=== PATIENT | female | born 1985 | race Caucasian/White ===

== ENCOUNTER 2022-01-21 20:45 | Inpatient (IN) | payer OTHER, SELFPAY ==
[2022-01-21 21:03] VITALS: BP 123/81; PULSE 77
[2022-01-21 21:10] VITALS: BMI 30.1
[2022-01-21 21:37] VITALS: RESP 16
[2022-01-21] MEDS: miSOPROStol 100 mcg tablet 25 MCG VAGINAL (22:00)
[2022-01-21 23:09] LABS: Basophils % 0.3 %; Eosinophils # 0.1 10^3/uL (0.0-0.8); Eosinophils % 1.6 %; Hematocrit 38.5 % (37.0-47.0); Hemoglobin 13.4 g/dL (11.5-15.3); Lymphocytes # 1.9 10^3/uL (0.8-4.8); Lymphocytes % 24.1 %; Mean Corpuscular HGB Conc 34.8 g/dL (30.0-36.0); Mean Corpuscular Hemoglobin 31.8 pg (28.0-34.0); Mean Corpuscular Volume 91.2 fl (81-99); Mean Platelet Volume 11.1 fL (7.4-10.4); Monocytes # 0.6 10^3/uL (0.2-0.9); Monocytes % 7.6 %; Neutrophils # 5.23 10^3/uL (1.8-7.7); Neutrophils % 65.9 %; Nucleated Red Blood Cells % 0 %; Platelet Count 221 10^3/cmm (130-400); Red Blood Count 4.22 10^6/uL (4.1-5.3); Red Cell Distribution Width 12.9 % (12.1-15.1); White Blood Count 7.9 10^3/uL (4.0-10.0)
[2022-01-21 23:53] VITALS: BP 106/56; PULSE 76
[2022-01-22] VITALS (97 sets, daily range): BP systolic 85–197; BP diastolic 47–116; PULSE 71–125; RESP 15–18; TEMP 36.2–37.4; O2SAT 93–100
[2022-01-22] MEDS: miSOPROStol 100 mcg tablet 25 MCG VAGINAL ×3 (02:00→10:44)
--- NOTE | 2022-01-22 06:54 | PM.OPHPUD ---
Labor & Delivery H&P Update Date of Procedure: January 22, 2022 Date H&P Performed: 01/21/22 Admission Diagnosis: 37-year-old 1 at 39 weeks and 5 days presenting for induction due to advanced maternal age as well as probable macrosomia. Planned procedure: Induction with presumed vaginal delivery Other information: The patient has had an unremarkable . She has had consistent care. Yesterday we discussed the pros and cons of continuing versus induction. Her cervix is unfavorable, and she knows that the chance of having a is greater as result of that. We also discussed the risks associated with late and advanced maternal age. As result we elected to proceed with an induction her labs are as follows. Her blood type is O+. Her antibody screen is negative. She failed her initial glucose screen, but passed her 3-hour. She is rubella immune. And the remainder of her infectious disease profile is within normal limits.
[2022-01-22] MEDS: fentaNYL 50 mcg/mL INJ 2mL IVP ×3 (10:12→12:34)
[2022-01-22] MEDS: dextrose 5%-lactated ringers 1,000 ML 125 ML IV (10:12)
--- NOTE | 2022-01-22 13:27 | P.ANESASSM_ITS ---
Pre-Anesthetic Assessment Height/Weight: Height 1.73 m Weight 89.811 kg Temp Pulse Resp BP O2 Del Method 97.1 F L 88 18 124/80 01/22/22 10:17 01/22/22 11:37 01/22/22 12:34 01/22/22 11:37 01/21/22 21:10 Preop Diagnosis: labor Pain epidural Familial anesthetic complications: none Was Beta Raul taken within 24 hours: N/A Was Clonidine taken within 24 hours: N/A Social No alcohol and No tobacco Exam alert, oriented x 3, clear to auscultation bilaterally and regular rate & rhythm Airway Submandibular: within normal limits Cervical ROM: within normal limits Mallampati: Class II Dentition: full History/ROS Other Pulmonary None reported CV/HEM None reported None reported Hepatic None reported GI Gastroesophageal Reflux Disease Metabolic None reported Musc/skel None reported Neuropsych None reported Anesthetic Plan ASA status: 2 Anesthesia: Regional (specify below) Risk of > 500 ml blood loss (7ml/kg in children): No Medications/Allergies Allergies Allergy/AdvReac Type Severity Reaction Status Date / Time No Known Allergies Allergy Unverified 09/25/21 08:14 Current Medications Generic Name Dose Route Start Last Admin Trade Name Freq PRN Reason Stop Dose Admin Fentanyl 25 - 100 mcg 01/21/22 21:37 01/22/22 12:34 Fentanyl 50 Mcg/Ml Inj 2ml IVP 75 mcg Q1H PRN Administration SEVERE PAIN Dextrose/Lactated Ringer's 1,000 mls @ 125 mls/hr 01/21/22 21:37 01/22/22 10:12 Dextrose 5%-Lactated Ringers IV 125 mls/hr .Q8H PRN Administration per label comments [facility] Anesthesia Female Reproductive History : 1 Data Anesthesia 01/21/22 21:30 Short CBC 01/21/22 Range/Units 21:30 WBC 7.9 (4.0-10.0) 10^3/uL Hgb 13.4 (11.5-15.3) g/dL Hct 38.5 (37.0-47.0) % MCV 91.2 (81-99) fl Plt Count 221 (130-400) 10^3/cmm Neut % (Auto) 65.9 % Neut # (Auto) 5.23 (1.8-7.7) 10^3/uL Cardiac Studies: No Data to Display
--- NOTE | 2022-01-22 13:53 | P.ANES_ITS ---
Anesthesia Procedures Procedure/Date: 01/22/22 epidural Procedure Narrative: epidural complete by SRNA, bolus given, epidural pump initiated with VICE PRESIDENT FOR PHILANTHROPY education given, vitals taken during procedure and satisfactory throughout, patient admits to decrease pain, report of procedure to OB RN Epidural: Time Out Performed: Yes Consents Signed: Procedure Consent Con sent: requested by attending/covering physician, from patient, risks and benefits reviewed and patient agrees to proceed Lumbar Level: L3-L4 Epidu ral position: sitting Epidural procedure: sterile prep of area, 1% lidocaine to numb the area (3 mL), 18 g needle, negative for paresthesia passed, neg for paresthesia, test dose given, 1.5% xylocaine 1:200k epi (5 mL), 0.2% Ropivacaine bolus ml (5 mL), placed PCEA, no systemic response, sterile dressing applied, L.U.D. no apparent complications and 0.2% Ropiavacaine @ mls/hr (13 mL/hr)
[2022-01-22] MEDS: ondansetron 2 mg/ML SDV 2 mL 4 MG IVP (14:00)
[2022-01-22] MEDS: hyDROXYzine 25 mg Capsule 50 MG PO (16:51)
--- NOTE | 2022-01-22 20:36 | P.PCNOB_ITS ---
Delivery Note: Date of delivery: January 22, 2022 Pre-delivery diagnoses: 37-year-old 1 at 39 weeks and 5 days presenting for induction due to advanced maternal age. Post-delivery diagnoses: Status post vacuum-assisted vaginal delivery Procedure: Vacuum-assisted vaginal delivery Delivering Physician: Vernon Barton Estimated blood loss (mL): 200 Pre-Delivery Course: And wasThe patient presented to the hospital for induction based on Cytotec 25 mcg x 4. An epidural was placed. An amniotomy was performed. She then progressed to complete without difficulty. Her baby was demonstrating some decelerations and tachycardia and was repositioned. Despite his decelerations and tachycardia he continued to show good variability. As a result, we elected to have the patient push while having anesthesia and pediatrics available in case we need to proceed with a section. The patient had several decelerations that were prolonged in a row, as result I elected to apply a Kiwi soft cup vacuum. The pressure was applied with each contraction the released between contractions. There were no pop offs. With the assistance of the vacuum the baby was able to progress to the point of . Delivery: DELIVERY: She delivered a male with a weight of 7 pounds 0 ounces with Apgars of 2, 7, 7. The baby was delivered from the CIPRIANO position. The baby was noted to be floppy immediately, the cord was cut and clamped, and the nurses brought him to the warmer for resuscitation. There was no nuchal cord. There was no meconium. The fluid behind the baby was noted to be dark red. The placenta and 3 vessel cord were delivered intact shortly thereafter. The perineum and vaginal vault were carefully examined. Several vaginal lacerations were noted. The largest was on the right vaginal wall just inside the labia minora. It was not bleeding and did not require repair. The mother was in stable condition. After resuscitation, the baby also was in stable condition and placed on the mother for skin to skin. Post-Delivery Status: Good A&P Assessment and plan (1) 39 weeks gestation of : I anticipate routine care for the mother. I have asked the nurses to make sure they have her do sitz bath's due to her intravaginal tears. (2) Vacuum-assisted vaginal delivery: (3) Advanced maternal age (AMA) in : Coding Level of Care Code Acute Supervisor Paper Products for Chg Fwd Diagnoses 39 weeks gestation of Z3A.39 Vacuum-assisted vaginal delivery Z37.9 Advanced maternal age (AMA) in
[2022-01-22] MEDS: lactated ringers 1,000 ML 125 ML IV (21:23)
[2022-01-22] MEDS: HYDROcodone-acetaminophen 5-325 mg Tablet PO (22:19)
[2022-01-23] VITALS (7 sets, daily range): BP systolic 103–123; BP diastolic 59–77; PULSE 76–87; RESP 14–16; TEMP 36.7–37.7; O2SAT 100
[2022-01-23] MEDS: ibuprofen 800 mg tablet PO ×4 (01:18→21:48)
[2022-01-23] MEDS: HYDROcodone-acetaminophen 5-325 mg Tablet PO ×3 (04:22→19:34)
[2022-01-23] MEDS: prenatal vitamin Capsule 1 CAP PO (08:17)
[2022-01-23] MEDS: docusate sodium 100 mg Capsule PO ×2 (08:17→21:48)
[2022-01-23 08:39] LABS: Hematocrit 29.3 % (37.0-47.0); Mean Corpuscular HGB Conc 34.1 g/dL (30.0-36.0); Mean Corpuscular Hemoglobin 31.6 pg (28.0-34.0); Mean Corpuscular Volume 92.7 fl (81-99); Mean Platelet Volume 10.6 fL (7.4-10.4); Platelet Count 149 10^3/cmm (130-400); Red Blood Count 3.16 10^6/uL (4.1-5.3); Red Cell Distribution Width 13.1 % (12.1-15.1); White Blood Count 13.2 10^3/uL (4.0-10.0)
--- NOTE | 2022-01-23 12:11 | P.PN_ITS ---
ENTRY LEVEL MANUFACTURING ENGINEER Subjective Subjective: Interval history: The patient is doing well postdelivery. Her bleeding has been within normal limits. She did have some severe pain a few hours after the delivery but she is doing well now. Labor: Station: 0 Amniotic Membrane Status: Ruptured Monitor Mode: Palpation Contraction Pattern: Regular Status: Category II Vitals/I&O/Wt Last Vital Signs Temp 99.9 F H 01/23/22 04:00 Pulse 84 01/23/22 09:00 Resp 15 01/23/22 09:00 BP 103/60 01/23/22 09:00 Pulse Ox 100 01/23/22 01:00 O2 Del Method 01/22/22 16:15 01/22/22 01/23/22 01/23/22 22:59 06:59 14:59 Output Total 400 / 400 Balance -400 / -400 Weight last 48 hrs Weight 198 lb Physical Exam Narrative: The patient is alert. She appears comfortable. Her heart has a regular rate and rhythm with no murmurs appreciated. Lungs are clear to auscultation bilaterally. Her fundus is firm and below the umbilicus. Urinary Catheter Management: Shannon: Cath Placed During This Visit: yes, but has since been removed by the nurse Reason for Continuing Indwelling Catheter: Accurate Measurement of Urinary Output in Critically Ill Patients Urinary Catheter Date of Insertion: 01/22/22 Urinary Catheter Time of Insertion: 13:50 Date Urinary Catheter Removed: 01/22/22 Time Urinary Catheter Discontinued: 18:00 Data 01/23/22 08:30 A&P Assessment and plan (1) Vacuum-assisted vaginal delivery: I anticipate routine care. Expect she will be discharged home tomorrow morning. (2) Advanced maternal age (AMA) in : (3) 39 weeks gestation of : Attestations Medical Necessity Statement*: I anticipate routine care. She will likely be discharged tomorrow. Coding Level of Care Code Acute Assistant Refinery Operator for Chg Fwd Diagnoses Vacuum-assisted vaginal delivery Z37.9 Advanced maternal age (AMA) in 39 weeks gestation of Z3A.39
[2022-01-24 04:03] VITALS: BP 95/57; PULSE 106; RESP 14
[2022-01-24] MEDS: ibuprofen 800 mg tablet PO (07:32)
[2022-01-24] MEDS: docusate sodium 100 mg Capsule PO (07:32)
[2022-01-24] MEDS: prenatal vitamin Capsule 1 CAP PO (07:32)
--- NOTE | 2022-01-24 09:08 | P.DS_ITS ---
Discharge Providers AQUATIC HABITAT BIOLOGIST Date of Admission: 01/21/22 20:45 Date of Discharge: 01/24/22 Attending Provider at Admission: Vernon Barton MD Attending Provider at Discharge: Vernon Barton MD Diagnoses at Discharge Discharge Diagnosis (1) Vacuum-assisted vaginal delivery: Status: Acute (2) Advanced maternal age (AMA) in : Status: Acute (3) 39 weeks gestation of : Status: Acute Reason for Visit Reason for Visit: INDUCTION OF LABOR Hospital Course Hospital Course The patient presented to the hospital for induction due to advanced maternal age. She was placed on multiple doses of Cytotec. An epidural was placed. An amniotomy was performed. She progressed to complete and ultimately had a vacuum-assisted vaginal delivery due to recurrent late decelerations. She had Serena first-degree lacerations. None were repaired. Her course has been unremarkable. Her bleeding has been within normal limits. Her pain is been well controlled. She has breast-fed well. There have been no concerns. Information Peripartum Data: Delivery Method: Vaginal Physical Exam Narrative: The patient is alert. She appears comfortable. Her heart has a regular rate and rhythm with no murmurs appreciated. Lungs are clear to auscultation bilaterally. Her fundus is firm and below the umbilicus. Urinary Catheter Management: Shannon: Cath Placed During This Visit: yes, but has since been removed by the nurse Reason for Continuing Indwelling Catheter: Accurate Measurement of Urinary Output in Critically Ill Patients Urinary Catheter Date of Insertion: 01/22/22 Urinary Catheter Time of Insertion: 13:50 Date Urinary Catheter Removed: 01/22/22 Time Urinary Catheter Discontinued: 18:00 Discharge Data Studies Completed and Pending Laboratory Results WBC 13.2 10^3/uL (4.0-10.0) H 01/23/22 08:30 RBC 3.16 10^6/uL (4.1-5.3) L 01/23/22 08:30 Hgb 10.0 g/dL (11.5-15.3) L 01/23/22 08:30 Hct 29.3 % (37.0-47.0) L 01/23/22 08:30 MCV 92.7 fl (81-99) 01/23/22 08:30 MCH 31.6 pg (28.0-34.0) 01/23/22 08:30 MCHC 34.1 g/dL (30.0-36.0) 01/23/22 08:30 RDW 13.1 % (12.1-15.1) 01/23/22 08:30 Plt Count 149 10^3/cmm (130-400) 01/23/22 08:30 MPV 10.6 fL (7.4-10.4) H 01/23/22 08:30 Neut % (Auto) 65.9 % 01/21/22 21:30 Lymph % (Auto) 24.1 % 01/21/22 21:30 [place] % (Auto) 7.6 % 01/21/22 21:30 Eos % (Auto) 1.6 % 01/21/22 21:30 Baso % (Auto) 0.3 % 01/21/22 21:30 Neut # (Auto) 5.23 10^3/uL (1.8-7.7) 01/21/22 21:30 Lymph # (Auto) 1.9 10^3/uL (0.8-4.8) 01/21/22 21:30 [place] # (Auto) 0.6 10^3/uL (0.2-0.9) 01/21/22 21:30 Eos # (Auto) 0.1 10^3/uL (0.0-0.8) 01/21/22 21:30 Baso # (Auto) 0.0 10^3/uL (0.0-0.1) 01/21/22 21:30 Nucleated RBC % (auto) 0 % 01/21/22 21:30 Nucleated RBCs # 0.0 /100WBC 01/21/22 21:30 Vitals Last Vital Signs Temp 98.3 F 01/23/22 21:57 Pulse 106 H 01/24/22 04:03 Resp 14 01/24/22 04:03 BP 95/57 01/24/22 04:03 Pulse Ox 100 01/23/22 01:00 O2 Del Method 01/22/22 16:15 Discharge Plan Discharge Patient Disposition: Home Prescriptions: New ibuprofen 800 mg Tablet 800 mg PO TID Qty: 45 0RF -U 106.5-1 mg Capsule 1 cap PO DAILY Qty: 100 2RF Discharge Orders: Discharge Order (Routine); Ordered 01/24/22 Ordered By: Vernon Barton Referrals: Vernon Barton MD [Physician] - 6 Weeks Discharge Diet: Usual diet Discharge Activity: Limit activity as instructed Patient Instructions: Depression (DC), Bleeding (DC), Preeclampsia and Eclampsia After Delivery (GEN), Hemorrhage (DC), OB Discharge Report, OB Food/Drug Interaction Guide, OB Care at Home, Opioid Safety, OB Home Care, OB Vaginal Deliveries Discharge Attestations AQUATIC HABITAT BIOLOGIST Time Spent in Discharge Care*: less than 30 min Coding Level of Care Code Acute Flag Signaler for Chg Fwd Diagnoses Vacuum-assisted vaginal delivery Z37.9 Advanced maternal age (AMA) in 39 weeks gestation of Z3A.39
[2022-01-24 10:30] VITALS: BP 111/71; PULSE 92; RESP 15; TEMP 36.4
--- NOTE | 2022-01-25 14:56 | ANE.PACU2 ---
Inpatient post-anesthesia follow up: Airway intact: Yes Vital signs: Temperature 97.5 F Pulse Rate 92 Respiratory Rate 15 Blood Pressure 111/71 Pulse Oximetry 100 Oxygen Delivery Me thod Non-Rebreather Oxygen Flow Rate Fraction of Inspir ed Oxygen Hydration adequate: Yes Nausea and vomiting: No Pain level: 2 Mental status: Baseline
== END 2022-01-24 10:26 | disposition home or self-care (01) | DRG 807 ==
PROVIDERS: Admitting Provider Family Medicine; Visit Provider Family Medicine
DX: O76 Abnormality in fetal heart rate and rhythm complicating labor and delivery (principal); Z37.0 Single live birth; Z3A.39 39 weeks gestation of pregnancy
CPT/HCPCS: 12345; 36415; 51702; 59025; 59409; 85025; 85027; 96374; 96376; J2405; J3010; J7120; J7121

== ENCOUNTER 2023-03-11 13:36 | Outpatient (CLI) | payer MEDICAID, SELFPAY ==
--- NOTE | 2023-03-11 14:00 | US_ITS ---
WS: [id number] US pelvic complete* [id number] HISTORY: ?OVARIAN CYSTS/EVAL ENDOMETRIAL THICKNESS, follicle count. COMPARISON: None available. Uterus: 8.1 cm x 5.5 cm x 4.3 cm. Normal size anteverted uterus. No fibroid or mass. Endometrium: 0.5 cm. Normal endometrium. No increased thickness or vascularity. Right ovary: 2.9 cm x 2.5 cm x 1.4 cm. Normal size ovary. 4 follicles are identified. The largest fol licle with a maximum diameter of 0.8 mm. Left ovary: 2.7 cm x 2.4 cm x 1.5 cm. Normal size ovary. 7 follicles are identified. The largest foll icles with a maximum diameter of 0.8 mm. No free fluid in the cul-de-sac. IMPRESSION: 1. Normal thin endometrium. 2. RIGHT ovary; 4 follicles, largest diameter 0.8 mm. 3. LEFT ovary; 7 follicles, largest diameter 0.8 mm.
== END 2023-03-11 13:37 | disposition home or self-care (01) ==
PROVIDERS: Visit Provider Family Medicine
DX: N83.209 Unspecified ovarian cyst, unspecified side (principal); R93.89 Abnormal findings on diagnostic imaging of other specified body structures
CPT/HCPCS: 76856

== ENCOUNTER 2023-04-08 09:21 | Outpatient (CLI) | payer MEDICAID, SELFPAY ==
[2023-04-08 10:45] LABS: Estradiol 178.3 pg/mL
== END 2023-04-08 09:22 | disposition home or self-care (01) ==
LOC: LAB 09:23
PROVIDERS: Visit Provider Specialist
DX: N97.9 Female infertility, unspecified (principal)
CPT/HCPCS: 36415; 82670; 84144; 84702

== ENCOUNTER 2023-04-11 12:38 | Outpatient (CLI) | payer MEDICAID, SELFPAY ==
[2023-04-11 14:57] LABS: Estradiol 201.8 pg/mL; Progesterone 35.14 ng/mL
== END 2023-04-11 12:39 | disposition home or self-care (01) ==
LOC: LAB 12:41
PROVIDERS: PCP Family Medicine; Visit Provider Specialist
DX: N97.9 Female infertility, unspecified (principal)
CPT/HCPCS: 36415; 82670; 84144; 84702

== ENCOUNTER 2023-04-26 08:18 | Outpatient (CLI) | payer MEDICAID, SELFPAY ==
--- NOTE | 2023-04-26 | US_ITS ---
WS: [id number] EARLY OBSTETRICAL ULTRASOUND (<14 WEEKS). HISTORY: 1ST TRIMESTER OB SCAN COMPARISON: None available. Single intrauterine gestational sac is identified. Cardiac activity at 125 BPM. [place]-rump length ismael sures 0.7 cm which corresponds to a gestation of 6 weeks 4 days. Normal-appearing yolk sac and amnion demonstrated. No subchorionic hemorrhage. No free fluid. Normal size ovaries with no mass. IMPRESSION: 1. Single intrauterine gestation of 6 weeks 4 days with an EDC of 12/16/2023. 2. Normal early gestational heart rate.
== END 2023-04-26 08:19 | disposition home or self-care (01) ==
LOC: RAD 08:18
PROVIDERS: PCP Family Medicine; Visit Provider Specialist
DX: Z36.89 Encounter for other specified antenatal screening (principal)
CPT/HCPCS: 76801; 76817

== ENCOUNTER 2023-05-03 15:30 | Outpatient (CLI) | payer MEDICAID, SELFPAY ==
--- NOTE | 2023-05-03 15:44 | US_ITS ---
WS: [id number] EARLY OBSTETRICAL ULTRASOUND (<14 WEEKS). HISTORY: Evaluate for gestational viability and cardiac activity COMPARISON: 04/26/2023 Single intrauterine gestational sac is identified. Cardiac activity at 147 BPM. [place]-rump length ismael sures 1.1 cm which corresponds to a gestation of 7 weeks 2 days.. Normal-appearing yolk sac and amnio n demonstrated. No subchorionic hemorrhage. No free fluid. LEFT ovary is not identified. Normal RIGHT ovary. IMPRESSION: 1. Single intrauterine gestation of 7 weeks 2 days with an EDC of 12/18/2023. 2. Normal cardiac activity.
== END 2023-05-03 15:31 | disposition home or self-care (01) ==
LOC: RAD 15:30
PROVIDERS: PCP Family Medicine; Visit Provider Specialist
DX: N97.9 Female infertility, unspecified (principal)
CPT/HCPCS: 76817

== ENCOUNTER 2023-05-17 15:11 | Outpatient (CLI) | payer MEDICAID, SELFPAY ==
--- NOTE | 2023-05-17 15:15 | USR_ITS ---
PROCEDURE INFORMATION: Exam: US First Trimester, Transabdominal Exam date and time: 05/17/2023 3:36 PM Age: 38 years old Clinical indication: Screening exam; Routine US, uterus; Additional info: Evaluate gestational viability cardiac activity LABS AND CLINICAL REPORTS: Gestational age (Established): 9 w 3 d Estimated due date (Established): 12/17/2023 TECHNIQUE: Imaging protocol: Real-time transabdominal obstetrical ultrasound of the maternal pelvis and a first trimester , less than 14 weeks 0 days, with image documentation. COMPARISON: US OB transvaginal [id number] 05/03/2023 3:53 PM FINDINGS: GESTATION: Gestation: Single live intrauterine gestation of approximately 9 weeks 3 days by crown-rump length measurement. Yolk sac measures 6.1 mm. Embryonic/ heart rate: 169 bpm Extra-embryonic membranes/Placenta: Unremarkable. No subchorionic bleed. Amniotic fluid: Amniotic and extra-amniotic fluid are normal for gestational age. BIOMETRY: Gestational age (AUA): 9 weeks 3 days by crown-rump length measurement. MATERNAL: Uterus: 12.5 x 7.3x 6.7 cm Cervix: Unremarkable. Right ovary/adnexa: Obscured by lack of adequate acoustic window. Left ovary/adnexa: Normal in size measuring 2.8 x 1.6 x 2.5 cm Intraperitoneal space: No intraperitoneal free fluid. US/US OB <= 14 weeks fetus [id number] IMPRESSION: Single live intrauterine gestation of approximately 9 weeks 3 days.
== END 2023-05-17 15:12 | disposition home or self-care (01) ==
LOC: RAD 15:12
PROVIDERS: PCP Family Medicine; Visit Provider Specialist
DX: O36.80X0 Pregnancy with inconclusive fetal viability, not applicable or unspecified (principal); Z3A.09 9 weeks gestation of pregnancy
CPT/HCPCS: 76801

== ENCOUNTER 2023-05-30 11:28 | Outpatient (CLI) | payer MEDICAID, SELFPAY ==
[2023-05-30 13:14] LABS: Progesterone 33.17 ng/mL
== END 2023-05-30 11:29 | disposition home or self-care (01) ==
LOC: LAB 11:34
PROVIDERS: PCP Family Medicine; Visit Provider Specialist
DX: Z34.01 Encounter for supervision of normal first pregnancy, first trimester (principal)
CPT/HCPCS: 36415; 84144

== ENCOUNTER 2023-12-03 05:42 | Inpatient (IN) | payer MEDICAID, SELFPAY ==
[2023-12-03] VITALS (99 sets, daily range): BP systolic 85–131; BP diastolic 50–78; PULSE 84–115; RESP 15–16; TEMP 35.6–36.9; O2SAT 94–100; BMI 29.5
[2023-12-03] MEDS: lactated ringers 1,000 ML 999 ML IV (05:19)
[2023-12-03 05:23] LABS: Basophils % 0.2 %; Eosinophils # 0.1 10^3/uL (0.0-0.8); Hematocrit 39.8 % (36-47); Lymphocytes # 1.8 10^3/uL (0.8-4.8); Lymphocytes % 13.8 %; Mean Corpuscular HGB Conc 34.2 g/dL (30-55); Mean Corpuscular Hemoglobin 30.8 pg (27-33); Mean Platelet Volume 10.1 fL (7.4-10.4); Monocytes # 0.6 10^3/uL (0.2-0.9); Monocytes % 4.7 %; Neutrophils # 10.07 10^3/uL (1.8-7.7); Neutrophils % 79.6 %; Nucleated Red Blood Cells % 0 %; Platelet Count 186 10^3/cmm (157-399); Red Blood Count 4.42 10^6/uL (3.85-5.65); Red Cell Distribution Width 13.3 % (12.1-15.1); White Blood Count 12.67 10^3/uL (3.29-11.43)
[2023-12-03] MEDS: dextrose 5%-lactated ringers 1,000 ML 125 ML IV ×2 (06:24→14:22)
--- NOTE | 2023-12-03 07:12 | P.PN_ITS ---
Vitals/I&O/Wt Last Vital Signs Temp 96.4 F L 12/03/23 04:58 Pulse 92 12/03/23 07:09 BP 114/67 12/03/23 07:09 Pulse Ox 100 12/03/23 07:06 O2 Del Method Room Air 12/03/23 05:31 Weight last 48 hrs Weight 87.997 kg Weight 87.997 kg Data 12/04/23 04:00 Other data: ROUTE SALES TRAINEE called for labor epidural 5 attempts made by ROUTE SALES TRAINEE without success spine appears to have a left rotation Dr. Velasquez called and attempts stopped. Attestations 2 Medical Necessity Statement*: n/a Coding Level of Care Code Acute Code for Chg Fwd
[2023-12-03] MEDS: ROPivacaine syringe 100 MG/50 ML SYRINGE 10 MG EPIDURAL ×3 (07:20→14:25)
--- NOTE | 2023-12-03 07:22 | ANES.PROC ---
Anesthesia Procedures Procedure/Date: 12/03/23 Epidural: Time Out Performed: Yes Consents Signed: Procedure Consent Consent: requested by attending/covering physician, from patient, risks and benefits reviewed and patient agrees to proceed Lumbar Level: L3-L4 Epidural position: sitting Epidural procedure: sterile prep of area, 1% lidocaine to numb the area, 18 g needle, negative for paresthesia passed, neg for paresthesia, test dose given, 1.5% xylocaine 1:200k epi (5), 0.2% Ropivacaine bolus ml (5), placed PCEA, no systemic response, sterile dressing applied, L.U.D. no apparent complications and 0.2% Ropiavacaine @ mls/hr (10)
--- NOTE | 2023-12-03 10:16 | PM.OPHPUD ---
Labor & Delivery H&P Update Date of Procedure: December 03, 2023 Date H&P Performed: 12/01/23 Changes to previous documentation: The patient arrived in active labor with cervix change. Admission Diagnosis: 38-year-old 2 para 1-0-0-1 at 38 weeks estimated gestational age Other information: The patient presented to the hospital in active labor. She was noted to be making cervical change having contractions less than every 5 minutes. Her was otherwise unremarkable. Her blood type is a positive. Her antibody screen was negative. She failed her initial glucose screen but passed her 3-hour glucose screen. She is rubella immune. Her infectious disease profile is within normal limits. Related Problem List Diagnoses (1) 38 weeks gestation of : (2) Advanced maternal age in multigravida: A&P Assessment and plan (1) 38 weeks gestation of : I anticipate routine labor and delivery. She did have a large shoulder dystocia with her previous so we will be mindful of that possibility. Status: Acute (2) Advanced maternal age in multigravida: Status: Acute
[2023-12-03] MEDS: calcium carbonate 500 mg Chew Tablet 1000 MG PO ×2 (10:28→14:21)
[2023-12-03] MEDS: ondansetron 2 mg/ML SDV 2 mL 4 MG IVP (14:24)
[2023-12-03] MEDS: oxytocin 30 UNIT/500 ML BAG 600 UNIT IV (15:47)
--- NOTE | 2023-12-03 15:56 | PM.DELIVERY ---
Delivery Note: Date of delivery: December 03, 2023 Pre-delivery diagnoses: 38-year-old 2 para 1-0-0-1 at 38 weeks estimated gestational age presenting in active labor Procedure: Spontaneous vaginal delivery Delivering Physician: Vernon Barton Estimated blood loss (mL): 100 Pre-Delivery Course: The patient presented to the hospital in active labor. An epidural was placed. An amniotomy was performed. Delivery: DELIVERY: The patient progressed to complete without difficulty. She delivered a female with a weight of 6 pounds 8 ounces with Apgars of 9, 9. The baby was delivered from the OP position and placed on the mother's abdomen. The cord was then clamped and cut. There was no nuchal cord. There was terminal meconium. The placenta and 3 vessel cord were delivered intact shortly thereafter. The perineum and vaginal vault were carefully examined. A left vaginal wall laceration and a right periurethral laceration were noted. Neither were bleeding and did not require stitches.. Both the mother and the baby were in stable condition. Post-Delivery Status: Good History History History 2 Term 1 0 Miscarriages/Ectopic 0 Living Children 1 A&P Assessment and plan (1) 38 weeks gestation of : (2) Advanced maternal age in multigravida: (3) Normal vaginal delivery: I anticipate routine care. Coding Level of Care Code Acute Code for Chg Fwd Diagnoses 38 weeks gestation of Z3A.38 Advanced maternal age in multigravida O09.529 Normal vaginal delivery O80
[2023-12-03] MEDS: HYDROcodone-acetaminophen 5-325 mg Tablet PO (16:10)
[2023-12-03] MEDS: ibuprofen 800 mg tablet PO (20:34)
[2023-12-03] MEDS: benzocaine-menthol 78 gm Canister 1 SPRAY TOPICAL (20:35)
[2023-12-04] VITALS: BP 93/52; PULSE 94; RESP 18; TEMP 36.4
[2023-12-04 02:00] VITALS: BP 92/54; PULSE 82; RESP 18; TEMP 36.7
[2023-12-04 04:12] LABS: Hematocrit 34.2 % (36-47); Mean Corpuscular HGB Conc 33.3 g/dL (30-55); Mean Corpuscular Hemoglobin 30.7 pg (27-33); Mean Corpuscular Volume 92.2 fl (85-98); Platelet Count 165 10^3/cmm (157-399); Red Blood Count 3.71 10^6/uL (3.85-5.65); Red Cell Distribution Width 13.7 % (12.1-15.1); White Blood Count 15.35 10^3/uL (3.29-11.43)
[2023-12-04] MEDS: HYDROcodone-acetaminophen 5-325 mg Tablet PO (05:14)
[2023-12-04 06:00] VITALS: BP 90/52; PULSE 86; RESP 18; TEMP 36.5
--- NOTE | 2023-12-04 07:00 | ANE.PACU2 ---
Inpatient post-anesthesia follow up: Airway intact: Yes Vital signs: Temperature 98.0 F Pulse Rate 82 Respiratory Rate 16 Blood Pressure 101/68 Pulse Oximetry 97 Oxygen Delivery Me thod Room Air Oxygen Flow Rate Fraction of Inspir ed Oxygen Hydration adequate: Yes Nausea and vomiting: No Pain level: 1 Mental status: Baseline Epidural Start/End: Epidural Start Date: 12/03/23 Epidural Start Time: 06:18 Epidural End Date: 12/04/23 Epidural End Time: 03:30
[2023-12-04] MEDS: ibuprofen 800 mg tablet PO ×2 (09:21→14:32)
[2023-12-04] MEDS: docusate sodium 100 mg Capsule PO (09:21)
[2023-12-04] MEDS: PRENATAL VIT NO.130/IRON/FOLIC 1 EACH TABLET PO (09:21)
[2023-12-04 09:23] VITALS: BP 94/54; PULSE 88; RESP 16; TEMP 36.7; O2SAT 97
--- NOTE | 2023-12-04 09:50 | PM.OBGYDC ---
Discharge Providers INFORMATION SECURITY ENGINEER Date of Admission: 12/03/23 05:42 Date of Discharge: 12/04/23 Attending Provider at Admission: Vernon Barton MD Attending Provider at Discharge: Vernon Barton MD Primary Care Provider: Vernon Barton MD Diagnoses at Discharge Discharge Diagnosis (1) 38 weeks gestation of : Status: Acute (2) Advanced maternal age in multigravida: Status: Acute (3) Normal vaginal delivery: Status: Acute Reason for Visit Reason for Visit: Contractions Hospital Course Hospital Course The patient arrived to the hospital in active labor. An epidural was placed. An amniotomy was performed. She progressed to complete and had an unremarkable vaginal delivery in an OP position. The placenta was easily delivered afterwards. Her course was unremarkable. Her bleeding was within normal limits. Her pain was well-controlled. She breast-fed well. Information Peripartum Data: Infant Delivery Method: Vaginal Physical Exam Narrative: The patient is alert. She appears comfortable. Her heart has a regular rate and rhythm with no murmurs appreciated. Lungs are clear to auscultation bilaterally. Her fundus is firm and below the umbilicus. Urinary Catheter Management: Shannon Latex: Cath Placed During This Visit: yes, but has since been removed by the nurse Reason for Continuing Indwelling Catheter: Decision to DC Catheter Urinary Catheter Date of Insertion: 12/03/23 Urinary Catheter Time of Insertion: 08:05 Date Urinary Catheter Removed: 12/03/23 Time Urinary Catheter Discontinued: 15:20 History History History 2 Term 1 0 Miscarriages/Ectopic 0 Living Children 1 Discharge Data Studies Completed and Pending Laboratory Results WBC 15.35 10^3/uL (3.29-11.43) H 12/04/23 04:00 RBC 3.71 10^6/uL (3.85-5.65) L 12/04/23 04:00 Hgb 11.40 g/dL (11.27-16.99) 12/04/23 04:00 Hct 34.2 % (36-47) L 12/04/23 04:00 MCV 92.2 fl (85-98) 12/04/23 04:00 MCH 30.7 pg (27-33) 12/04/23 04:00 MCHC 33.3 g/dL (30-55) 12/04/23 04:00 RDW 13.7 % (12.1-15.1) 12/04/23 04:00 Plt Count 165 10^3/cmm (157-399) 12/04/23 04:00 MPV 10.0 fL (7.4-10.4) 12/04/23 04:00 Neut % (Auto) 79.6 % 12/03/23 05:12 Lymph % (Auto) 13.8 % 12/03/23 05:12 [place] % (Auto) 4.7 % 12/03/23 05:12 Eos % (Auto) 1.0 % 12/03/23 05:12 Baso % (Auto) 0.2 % 12/03/23 05:12 Neut # (Auto) 10.07 10^3/uL (1.8-7.7) H 12/03/23 05:12 Lymph # (Auto) 1.8 10^3/uL (0.8-4.8) 12/03/23 05:12 [place] # (Auto) 0.6 10^3/uL (0.2-0.9) 12/03/23 05:12 Eos # (Auto) 0.1 10^3/uL (0.0-0.8) 12/03/23 05:12 Baso # (Auto) 0.0 10^3/uL (0.0-0.1) 12/03/23 05:12 Nucleated RBC % (auto) 0 % 12/03/23 05:12 Nucleated RBCs # 0.0 /100WBC 12/03/23 05:12 Blood Type O Positive 12/03/23 05:12 Rho(D) Type Rh positive 12/03/23 05:12 Antibody Screen Negative 12/03/23 05:12 Vitals Last Vital Signs Temp 98.0 F 12/04/23 09:23 Pulse 88 12/04/23 09:23 Resp 16 12/04/23 09:23 BP 94/54 12/04/23 09:23 Pulse Ox 97 12/04/23 09:23 O2 Del Method Room Air 12/04/23 09:23 Results Labs OB ([facility]): Obstetrics US 04/26/23 Blood Type O Positive 12/03/23 Antibody Screen Negative 12/03/23 Hct 34.2 % (36-47) L 12/04/23 Hgb 11.40 g/dL (11.27-16.99) 12/04/23 Rho(D) Type Rh positive 12/03/23 Plt Count 165 10^3/cmm (157-399) 12/04/23 Progesterone 33.17 ng/mL 05/30/23 Total Estradiol 201.8 pg/mL 04/11/23 Ser , Semi-Qnt 369.60 mIU/mL 04/11/23 Discharge Plan Discharge Patient Disposition: Home Condition: Stable Prescriptions: New ibuprofen 800 mg Tablet 800 mg PO TID Qty: 45 0RF Continued -U 106.5-1 mg Capsule 1 cap PO DAILY Qty: 100 2RF Discontinued aspirin 1 tab PO DAILY Discharge Orders: Discharge Order (Routine); Ordered 12/04/23 Ordered By: Vernon Barton Referrals: Vernon Barton MD [Primary Care Provider] - 6 Weeks (PLEASE CALL TUESDAY TO SCHEDULE APPOINTMENT.) Discharge Diet: Usual diet Discharge Activity: Limit activity as instructed Patient Instructions: Depression (DC), Preeclampsia and Eclampsia After Delivery (GEN), Hemorrhage (DC), OB Discharge Report, OB Food/Drug Interaction Guide, OB Care at Home, Opioid Safety, OB Vaginal Deliveries, Abnormal Bleeding, Depression Discharge Attestations INFORMATION SECURITY ENGINEER Time Spent in Discharge Care*: less than 30 min Coding Level of Care Code Acute Code for Chg Fwd Diagnoses 38 weeks gestation of Z3A.38 Advanced maternal age in multigravida O09.529 Normal vaginal delivery O80
[2023-12-04 16:00] VITALS: BP 101/68; PULSE 82; RESP 16; TEMP 36.7
[2023-12-04 16:05] VITALS: BP 101/68; PULSE 82; RESP 16; TEMP 36.7
== END 2023-12-04 16:05 | disposition home or self-care (01) | DRG 807 ==
LOC: OPOB 05:43 → OBGYN 05:43
PROVIDERS: Admitting Provider Family Medicine; PCP Family Medicine; Visit Provider Family Medicine
DX: O77.0 Labor and delivery complicated by meconium in amniotic fluid (principal); Z37.0 Single live birth; Z3A.38 38 weeks gestation of pregnancy
CPT/HCPCS: 36415; 51702; 59409; 85025; 85027; 86850; 86900; 99211; J2405; J2590; J2795; J3010; J7120; J7121

== ENCOUNTER 2024-10-19 13:07 | Outpatient (CLI) | payer MEDICAID, SELFPAY ==
--- NOTE | 2024-10-19 | MM_ITS ---
WS: [id number] BILATERAL 3D TOMOSYNTHESIS DIGITAL SCREENING MAMMOGRAPHY WITH CAD CLINICAL INFORMATION: ANNUAL SCREENING HISTORY: Screening mammogram. No current complaints. COMPARISON: Baseline TECHNIQUE: Bilateral CC and MLO views. FINDINGS: The breasts are composed of heterogeneous fibroglandular density tissue, which can limit the detection of small underlying mass lesions. No suspicious mass, asymmetry, calcifications, or architectural distortion. No evidence of malignancy. MM/MM scr tomosynthesis [id number] IMPRESSION: DENSITY: The breasts are heterogeneously dense, which may obscure small masses. BI-RADS: 1 - Negative FOLLOW UP: 1 Year Follow-up Recommend return to annual screening mammography.
== END 2024-10-19 13:08 | disposition home or self-care (01) ==
LOC: RAD 13:09
PROVIDERS: PCP Family Medicine; Visit Provider Family Medicine
DX: Z12.31 Encounter for screening mammogram for malignant neoplasm of breast (principal); R92.323 Mammographic fibroglandular density, bilateral breasts; R92.333 Mammographic heterogeneous density, bilateral breasts
CPT/HCPCS: 77063; 77067